=== PATIENT | male | born 1990 | race Caucasian/White ===

== ENCOUNTER → 2020-09-15 | Outpatient (REF) | LOC: M LABSMTC 11:50 | PROVIDERS: ATTEND Family Medicine | DX: Z11.52 Encounter for screening for COVID-19 (principal) ==

== ENCOUNTER → 2022-02-28 | Outpatient (CLI) | payer BC | LOC: M PLAIMG 14:12 | PROVIDERS: ATTEND Internal Medicine | DX: K29.00 Acute gastritis without bleeding (principal) ==

== ENCOUNTER 2022-05-07 08:49 | Emergency (ER) | payer BC ==
[~2022-05-07] VITALS: Ht 180.3 cm; Wt 119.3 kg
[2022-05-07 08:49] VITALS: BP 143/93
[2022-05-07] MEDS ORDERED: OMEP-173 PO (09:19)
[2022-05-07] MEDS ORDERED: AMLO1TAB25 PO (09:19)
[2022-05-07] MEDS ORDERED: holter monitor (11:28)
== END 2022-05-07 11:44 | disposition home or self-care (01) ==
LOC: M ED 08:49
DX: R00.2 Palpitations (principal); I10 Essential (primary) hypertension; K21.9 Gastro-esophageal reflux disease without esophagitis; Z79.899 Other long term (current) drug therapy

== ENCOUNTER → 2022-05-08 | Outpatient (CLI) | payer BC ==
[~2022-05-08] MED LIST: AMLO1TAB25 PO; OMEP-173 PO; holter monitor
== END ==
LOC: M EKG 15:04
PROVIDERS: ATTEND Internal Medicine
DX: R00.2 Palpitations (principal)

== ENCOUNTER → 2023-03-09 | Outpatient (REF) | LOC: M EMP 09:56 | PROVIDERS: ATTEND Family Medicine | DX: Z11.52 Encounter for screening for COVID-19 (principal) ==

== ENCOUNTER → 2024-02-07 | Outpatient (REF) | LOC: M EMP 14:34 | PROVIDERS: ATTEND Family Medicine | DX: Z11.52 Encounter for screening for COVID-19 (principal) ==

== ENCOUNTER → 2025-02-03 | Outpatient (REF) | payer BC | LOC: M SMT 13:05 | PROVIDERS: ATTEND Urology | DX: N48.9 Disorder of penis, unspecified (principal) ==

== ENCOUNTER → 2025-05-20 | Outpatient (REF) ==
[2025-05-20 15:00] LABS: SOFIA COVID ANTIGEN NEGATIVE (NEGATIVE)
== END ==
LOC: M EMP 07:59
PROVIDERS: ATTEND Family Medicine
DX: Z02.89 Encounter for other administrative examinations (principal)